=== PATIENT | male | born 1960 | race Asian ===

== ENCOUNTER 2019-08-10 15:22 | Inpatient (IN) | payer OTHER ==
[~2019-08-10] VITALS: Ht 160 cm; Wt 48.8 kg
[2019-08-10 15:42] VITALS: BP 157/78; PULSE 90; TEMP 98
[2019-08-10] MEDS ORDERED: CENTRUM SILVER1 TAB (15:53)
[2019-08-10] MEDS ORDERED: CALCIUM CARBON650 M2 (15:53)
[2019-08-10] MEDS ORDERED: OMEGA-3 1000 MG1 CAP PO (15:54)
[2019-08-10] MEDS ORDERED: ADVIL200 MG PO (15:55)
--- NOTE | 2019-08-10 16:00 | NUR ---
Pt arrived to floor at this time ,will orient to room, L hand grasp very weak, no movement of fingers but able to raise arm and leg on left side. Weak L reportedly esspecially when ambulating. Will continue to monitor.
[2019-08-10 16:25] VITALS: BP 157/78; PULSE 90; TEMP 98
--- NOTE | 2019-08-10 16:44 | NUR ---
storage worker met with patient and spouse, Semaj #[phone], and provided financial information, per spouse's request. Patient does not have health insurance and spouse has a copy of the Financial Assistance Application. Spouse states that she desires help to complete the application and plans to take off work Saturday to meet with financial counselor. Worker notified financial counselor that spouse requests assistance. Worker notified patient's nurse about the above information.
--- NOTE | 2019-08-10 18:43 | NUR ---
Pt resting in bed. Alarm on as pt did get up and try and ambulate on own even though advised not to. Fall risk signage in place. Pt resting in bed waiting on supper. Denies needs. IVF to RFA. Will give bedside shift report to nightshift nurse who will resume care.
[2019-08-10 19:17] VITALS: BP 140/83; PULSE 84; TEMP 97.9
[2019-08-10 22:54] LABS: COLLECTION METHOD CLEAN CATCH
[2019-08-10 23:00] LABS: MUCOUS Present /lpf; PH 5 (5-8); SQUAMOUS EPITHELIAL None Seen /hpf; URINE APPEARANCE Clear; URINE BACTERIA None Seen /hpf; URINE BILIRUBIN Negative (NEGATIVE); URINE BLOOD 2+ (NEGATIVE); URINE COLOR Yellow; URINE GLUCOSE 3+ (NEGATIVE); URINE KETONE Negative (NEGATIVE); URINE LEUKOCYTE ESTERASE Negative (NEGATIVE); URINE NITRATE Negative (NEGATIVE); URINE PROTEIN(semi-quant) 2+ (NEGATIVE)
[2019-08-10 23:33] VITALS: BP 159/84; PULSE 67; TEMP 98.9
[2019-08-11 03:34] VITALS: BP 160/89; PULSE 73
[2019-08-11 07:01] LABS: BASO % 0.3 % (0.0-2.0); EOS # 0.1 (0.0-0.7); EOS % 0.6 % (0-4.0); GRAN # 8.2 (1.4-6.5); GRAN % 80.6 % (42.2-75.2); HEMATOCRIT 45.9 % (42.0-52.0); HEMOGLOBIN 16.1 g/dl (13.5-18.0); LYMPH # 1.2 (1.2-3.4); LYMPH % 12.1 % (20.0-51.0); MEAN CELL VOLUME 89 fl (80.0-100.0); MEAN CORPUSCULAR HEMOGLOBIN 31 pg (27.0-31.0); MEAN CORPUSCULAR HGB CONC 35 g/dl (33.0-37.0); MEAN PLATELET VOLUME 10.7 fl (7.4-10.4); MONO # 0.6 (0.1-0.6); MONO % 5.9 % (1.7-9.3); PLATELET COUNT 117 K/mm3 (130-400); RED BLOOD COUNT 5.17 M/mm3 (4.20-5.60); REDCELL DISTRIBUTION WIDTH-CV 12.2 % (11.5-14.5)
[2019-08-11 07:26] LABS: CREATININE, serum 0.63 (0.66-1.25); MAGNESIUM 1.9 mg/dL (1.6-2.3); POTASSIUM 3.7 mmol/L (3.4-5.0)
[2019-08-11 07:49] LABS: TSH w REFLEX 0.453 uIU/mL (0.465-4.680)
[2019-08-11 08:00] VITALS: BP 149/74; PULSE 82; TEMP 98.6
--- NOTE | 2019-08-11 08:18 | NUR ---
Pt having ECHO/Carotids completed at this time.
--- NOTE | 2019-08-11 09:20 | NUR ---
Initial visit; Property Maintenance Technician introduced herself and offered patient blessings. He thanked .
[2019-08-11 10:55] VITALS: BP 152/84; PULSE 83; TEMP 98.7
--- NOTE | 2019-08-11 13:02 | NUR ---
Pt returned from MRI without issue. Pt stable and oriented. Pt IV started back up. Pt ready to eat. Pt has spouse at bedside. Pt left sided weakness unchanged since this am. Pt able to lift left upper but quickly falls down. Pt left lower ext able to lift high in the air but bounces against gravity. Right side normal strength. 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 Pt has fall precautions in place.
[2019-08-11 15:36] VITALS: BP 167/82; PULSE 82; TEMP 98.4
--- NOTE | 2019-08-11 15:49 | NUR ---
Pt remains alert and oriented. Left sided weakness remains without change. Pt eating and drinking without issue. Pt pain managed with PRN Tylenol. Pt IV patent with fluids running per orders and no infiltration or redness noted. Pt on fall precautions and currently using a urinal. Pt has call light in reach.
--- NOTE | 2019-08-11 19:06 | NUR ---
Pt report given to Uriel ALVAREZ.
--- NOTE | 2019-08-11 20:20 | NUR ---
Patient assessment completed and charted at this time, please see documentation for details. Patient resting in bed, at bedside. brought in food due to patient not liking food in hospital, okayed by previous nurse. Will continue to monitor.
[2019-08-11 20:23] VITALS: BP 155/77; PULSE 78; TEMP 98
[2019-08-11 23:19] VITALS: BP 156/79; PULSE 79; TEMP 97.9
[2019-08-12 03:36] VITALS: BP 166/76; PULSE 76; TEMP 98.6
[2019-08-12 07:15] VITALS: BP 162/81; PULSE 75; TEMP 98.5
--- NOTE | 2019-08-12 08:01 | NUR ---
Patient is resting in bed. Assesment as charted. Neuro checks completed. Patient continues to display left sided weakness of LUE & LLE. Patient able to hold LT arm up, unable to move fingers/toes. Pulses palbable 3+ in all extremities. Patient complaines of RT shoulder discomfort. Rated at 2 on face pain scale. Primary nurse notified. IV site RT forearm patent with NS at 100 ml/hr. Telemtry on. Call light in reach.
[2019-08-12 11:04] VITALS: BP 171/76; PULSE 82; TEMP 98.6
--- NOTE | 2019-08-12 11:53 | NUR ---
SW met with the patient and the patient's girlfriend, Amira Garcia, to discuss dis
--- NOTE | 2019-08-12 13:00 | NUR ---
PAULA met with the patient and the patient's girlfriend, Amira Medel, to review discharge plan and to discuss PT/OT recommendation of post-acute rehab. The patient speaks Chinese. PAULA used the [employer] services. The patient reports that he would be open to post-acute rehab, but him and his girlfriend would prefer a facility close to [place]. The patient is Medicaid pending. PAULA discussed the importance of sending referrals to multiple facilities and that he may not be accepted at a facility that is close. The patient verbalized understanding. PAULA provided the patient with Medicare.gov's list of inpatient rehabs and presented and explained the patient choice form. The patient was agreeable for PAULA to send referrals to [facility], [facility], [facility], [place], [facility], [facility], and [facility]. Patient choice form signed by the patient and he was provided a copy. PAULA contacted and faxed a referral to all of those facilities. Kiersten at [facility] reports that they are unable to accept the patient. SW awaiting screens from the other facilities.
[2019-08-12 15:50] VITALS: BP 178/85; PULSE 81; TEMP 98.7
[2019-08-12 19:59] VITALS: BP 151/73; PULSE 75; TEMP 97.7
--- NOTE | 2019-08-12 22:45 | NUR ---
Shift assessment complete. Patient in bed, resting. at bedside. Patient unable to understand much Nepali, interpreting for him during assessment. Patient told he has no pain, but requested tylenol. Prn tylenol given. Denies further needs at this time. Will continue to monitor.
[2019-08-12 23:28] VITALS: BP 160/80; PULSE 80; TEMP 97.7
[2019-08-13 04:49] VITALS: BP 160/83; PULSE 77; TEMP 98
[2019-08-13 07:10] LABS: BASO % 0.7 % (0.0-2.0); EOS # 0.1 (0.0-0.7); GRAN # 4.1 (1.4-6.5); GRAN % 68.3 % (42.2-75.2); HEMATOCRIT 43.2 % (42.0-52.0); HEMOGLOBIN 15.2 g/dl (13.5-18.0); LYMPH # 1.2 (1.2-3.4); LYMPH % 19.9 % (20.0-51.0); MEAN CELL VOLUME 90 fl (80.0-100.0); MEAN CORPUSCULAR HEMOGLOBIN 32 pg (27.0-31.0); MEAN CORPUSCULAR HGB CONC 35 g/dl (33.0-37.0); MEAN PLATELET VOLUME 11.8 fl (7.4-10.4); MONO # 0.5 (0.1-0.6); MONO % 8.9 % (1.7-9.3); PLATELET COUNT 114 K/mm3 (130-400); RED BLOOD COUNT 4.81 M/mm3 (4.20-5.60); REDCELL DISTRIBUTION WIDTH-CV 12.3 % (11.5-14.5)
[2019-08-13 07:11] LABS: CALCIUM 8.3 mg/dL (8.4-10.2); CREATININE, serum 0.68 (0.66-1.25); POTASSIUM 3.9 mmol/L (3.4-5.0)
[2019-08-13 07:46] VITALS: BP 148/76; PULSE 74; TEMP 98
--- NOTE | 2019-08-13 08:45 | NUR ---
Chapis, at [facility], reports that they would not have a andrew bed possibly until late next week. [facility] did fax over their financial assistance application. SW to ask Financial Counseling for their assistance. Financial Counseling did complete a Medicaid hill for the patient. Yanelis, at [place], reports that they do not accept Medicaid pending.
--- NOTE | 2019-08-13 10:05 | NUR ---
Assessment completed, alert/oriented, vital signs stable, denies pain or discomfort this morning, patient still having significant weakness to his LUE and LLE with no real changes for better or worse, he has NO new neuro deficits noted, heart RRR/distal pulses palapble, SR on tele, lungs CTA/ no resp.difficulty, PT/OT working with him, his blood sugar is improved this moring/ started Metformin yesterday and still covering with SSI,he is sitting up in the chair, denies other needs at this time
--- NOTE | 2019-08-13 10:23 | NUR ---
Financial Counselor, Nikhil, assisted patient with [facility]'s financial assistance application. PAULA contacted and faxed their and the SOBRA application to Chapis at [facility]. Chapis reports that she will be up to the hospital to visit the patient.
[2019-08-13 11:15] VITALS: BP 163/89; PULSE 78; TEMP 97.8
--- NOTE | 2019-08-13 11:24 | NUR ---
Marcial and Chap[facility] with [facility] came to screen the patient. They report they would like to accept the patient, once they have a andrew bed available. They state that one would not be available until possibly late next week. PAULA attempted to contact Paula at [facility] for an update on referral. PAULA left a voicemail. Keith, at [facility], reports that they have clinically accepted the patient; but need to check about his finances. PAULA faxed Keith the patient's SOBRA application. PAULA to continue to follow.
[2019-08-13] MEDS ORDERED: LIPITOR 40MG TA40 MG PO (14:23)
[2019-08-13] MEDS ORDERED: PRINIVIL10 MG PO (14:25)
[2019-08-13] MEDS ORDERED: TYLENOL 325MG325 MG PO (14:26)
[2019-08-13] MEDS ORDERED: ASPIRIN 32325 MG/TAB PO (14:26)
[2019-08-13] MEDS ORDERED: GLUCOPHAGE500 MG/TAB PO (14:26)
[2019-08-13] MEDS ORDERED: NOVOLOG 100U100 U/M1 SQ (14:29)
--- NOTE | 2019-08-13 15:48 | NUR ---
Paula, at [facility], reports that they are able to accept the patient. PAULA faxed the patient's SOBRA application to [place]. PAULA informed the patient of acceptance, via [employer]. The patient is in agreeance to transfer there. PAULA attempted to contact the patient's girlfriend. PAULA unable to leave a voicemail, due to her voicemail not being set up. The patient gave PAULA permission to contact where she works. PAULA contacted the patient's girlfriend at [facility]. The patient's girlfriend is also in agreeance with the patient tranferring to [facility] and will provide transportation. She states that she [facility]. PAULA informed the patient's RN, Socrates, of this and Paula at [facility]. PAULA updated Keith at [facility]. [facility]. The [facility] is to discharge today, 08/13, to [facility]. Transportation to be by private vehicle, via the patient's girlfriend. No additional needs at this time.
[2019-08-13 17:52] VITALS: BP 163/89; PULSE 78; TEMP 97.8
--- NOTE | 2019-08-13 18:26 | NUR ---
patient is transferring to [facility], his is suppose to be here between [id number] to transport him, I have removed his IV and his telemery, social work has coordinated his transfer, I have attempted to call report to recieving nurse /facility with no answer
--- NOTE | 2019-08-13 20:18 | NUR ---
Patient DC to [facility] swingbed @ 1999. Left Floor via WC accompanied by PCT and friend. Call to [facility]. Report given to Elidia ALVAREZ. Encouraged to call with any questions or concerns.
== END 2019-08-13 20:00 | disposition swing bed (61) | DRG 65 ==
LOC: MEDICAL 15:22
PROVIDERS: Physician Assistant; ADMIT Internal Medicine
DX: I63.89 Other cerebral infarction (principal); G81.94 Hemiplegia, unspecified affecting left nondominant side; I10 Essential (primary) hypertension; E11.65 Type 2 diabetes mellitus with hyperglycemia; F17.210 Nicotine dependence, cigarettes, uncomplicated
CPT/HCPCS: 99223-AI; 99232-AI; 99239; A4216; A9585; J0696; J1644; J1815; J7030